=== PATIENT | male | born 1980 | race African-American/Black ===

== ENCOUNTER 2017-02-26 21:06 | Emergency (ER) | payer OTHER, MEDICAID ==
[~2017-02-26] VITALS: Ht 182.9 cm; Wt 96.0 kg
[~2017-02-26 21:06] MED LIST: [UNRECOGNIZED DRUG - REMARK]
[2017-02-27] MEDS ORDERED: MORPHINE SULFATE 10 MG/ML CPJ IM ONE (01:45)
[2017-02-27 04:52] VITALS: BP 125/83
== END 2017-02-27 05:11 | disposition home or self-care (01) ==
LOC: ER 21:29
DX: S82.301A Unspecified fracture of lower end of right tibia, initial encounter for closed fracture (principal); F17.200 Nicotine dependence, unspecified, uncomplicated; W11.XXXA Fall on and from ladder, initial encounter; Y93.39 Activity, other involving climbing, rappelling and jumping off; Y92.89 Other specified places as the place of occurrence of the external cause; Y99.8 Other external cause status
CPT/HCPCS: 29505; 73590; 73610; 73630; 96372; 99284; J2270